=== PATIENT | female | born 1930 | race Two or more races ===

== ENCOUNTER 2018-05-23 14:56 | Emergency (ER) | payer MEDICARE, MEDICAID ==
[~2018-05-23] VITALS: Ht 152.4 cm; Wt 59.1 kg
[2018-05-23 17:27] VITALS: BP 127/75
--- NOTE | 2018-05-23 17:27 | NUR ---
Patient discharged to home in stable condition. Written and verbal after care instructions given. Patient verbalizes understanding of instruction.
== END 2018-05-23 17:27 | disposition home or self-care (01) ==
LOC: ER 14:58
DX: S62.617A Displaced fracture of proximal phalanx of left little finger, initial encounter for closed fracture (principal); M19.041 Primary osteoarthritis, right hand; M85.841 Other specified disorders of bone density and structure, right hand; Z95.1 Presence of aortocoronary bypass graft; W01.0XXA Fall on same level from slipping, tripping and stumbling without subsequent striking against object, initial encounter; Y93.01 Activity, walking, marching and hiking; Y92.89 Other specified places as the place of occurrence of the external cause; Y99.8 Other external cause status
CPT/HCPCS: 29125; 70486; 73130; 99284; A4606; Z7610